=== PATIENT | female | born 1950 ===

== ENCOUNTER 2024-05-24 15:38 | Emergency (ER) | payer MEDICARE, SELFPAY ==
[2024-05-24 15:42] VITALS: BP 174/86; PULSE 84; RESP 18; TEMP 36.8; O2SAT 94
--- NOTE | 2024-05-24 15:46 | CTR_ITS ---
PROCEDURE INFORMATION: Exam: CT Head Without Contrast Exam date and time: 05/24/2024 4:21 PM Age: 74 years old Clinical indication: Injury or trauma; Fall; Blunt trauma (contusions or hematomas); Consciousness not specified TECHNIQUE: Imaging protocol: Computed tomography of the head without contrast. Radiation optimization: All CT scans at this facility use at least one of these dose optimization techniques: automated exposure control; mA and/or kV adjustment per patient size (includes targeted exams where dose is matched to clinical indication); or iterative reconstruction. COMPARISON: CT cervical spin wo con* [id number] 05/24/2024 4:21 PM RADIATION DOSE METRICS: Total DLP (mGy-cm): 1080.8 FINDINGS: Brain: Diffuse cerebral atrophy and white matter microangiopathic chronic ischemia in both hemispheres. No CT evidence of acute infarct, hemorrhage, mass or mass effect. Cerebral ventricles: No ventriculomegaly. Paranasal sinuses: Visualized sinuses are unremarkable. No fluid levels. Mastoid air cells: Visualized mastoid air cells are well aerated. Bones: Moderate chronic degenerative changes of both TMJs. No acute osseous lesions. Soft tissues: Unremarkable. CT/CT head wo con* [id number] IMPRESSION: 1. Senescent brain changes but no CT evidence of acute brain injury. 2. 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
--- NOTE | 2024-05-24 15:46 | CTR_ITS ---
PROCEDURE INFORMATION: Exam: CT Chest With Contrast; Diagnostic Exam date and time: 05/24/2024 4:32 PM Age: 74 years old Clinical indication: Injury or trauma; Fall; Generalized; Blunt trauma (contusions or hematomas) TECHNIQUE: Imaging protocol: Diagnostic computed tomography of the chest with contrast. Radiation optimization: All CT scans at this facility use at least one of these dose optimization techniques: automated exposure control; mA and/or kV adjustment per patient size (includes targeted exams where dose is matched to clinical indication); or iterative reconstruction. Contrast material: OMNIPAQUE 350; Contrast volume: 100 ml; Contrast route: INTRAVENOUS (IV); COMPARISON: CT cervical spin wo con* [id number] 05/24/2024 4:21 PM RADIATION DOSE METRICS: Total DLP (mGy-cm): 671.54 FINDINGS: Lungs: There is mild bilateral apical subpleural scarring. There is no consolidation. There is a calcified granuloma in the left upper lobe. There is subsegmental atelectasis in the right lung base. Pleural spaces: No pneumothorax. Small simple dependent right pleural effusion. Heart: Heart size is normal. There is no pericardial effusion. Mediastinal space: There is no mediastinal hematoma. Lymph nodes: There is no mediastinal or hilar lymphadenopathy. Vasculature: There is moderate aortic atherosclerotic disease. Central pulmonary arteries are unremarkable. Bones/joints: There are acute nondisplaced fractures of the posteromedial and posterolateral right 7th through 11th ribs. There is a nondisplaced medial right 12th rib fracture. The visible portions of the clavicles, scapulae, and proximal humeri are intact. No acute rib fractures on the left. There is a healed fracture of the distal sternal body. No acute sternal fracture. No acute spinal fracture. Soft tissues: The extrathoracic soft tissues are unremarkable. PROCEDURE INFORMATION: Exam: CT Abdomen And Pelvis With Contrast Exam date and time: 05/24/2024 4:32 PM Age: 74 years old Clinical indication: Injury or trauma; Fall; Generalized; Blunt trauma (contusions or hematomas) TECHNIQUE: Imaging protocol: Computed tomography of the abdomen and pelvis with contrast. Radiation optimization: All CT scans at this facility use at least one of these dose optimization techniques: automated exposure control; mA and/or kV adjustment per patient size (includes targeted exams where dose is matched to clinical indication); or iterative reconstruction. Contrast material: OMNIPAQUE 350; Contrast volume: 100 ml; Contrast route: INTRAVENOUS (IV); COMPARISON: No relevant prior studies available. RADIATION DOSE METRICS: Total DLP (mGy-cm): 671.54 FINDINGS: Liver: The liver is normal. Gallbladder and biliary ducts: The gallbladder is normal. There is no biliary dilation. Pancreas: There are 2 cysts in the pancreatic body measuring 11 and 10 mm on coronal series 11, image 35 and 32. No sign of pancreatitis or pancreatic injury. Spleen: The spleen is unremarkable. Adrenal glands: The adrenal glands are unremarkable. Kidneys and ureters: The kidneys are unremarkable. No hydronephrosis or stones. No ureteral dilation. Stomach and bowel: The stomach is unremarkable. The small bowel is nondilated. The gas distended cecum is positioned in the right upper quadrant. There is mild gas and fluid distension of the ascending and transverse colon. No sign of high-grade colonic obstruction or inflammation. There is moderate distal descending and sigmoid colonic diverticulosis without evidence of diverticulitis. Appendix: The appendix is not visible. Intraperitoneal space: There is no free air or significant intraperitoneal free fluid. Vasculature: There is severe aortic atherosclerotic disease. The portal, splenic and superior mesenteric veins are patent. Lymph nodes: There is no lymphadenopathy in the retroperitoneum, mesentery, pelvis or inguinal regions. Urinary bladder: The urinary bladder is unremarkable. Reproductive: The uterus is absent. There is no adnexal mass or large cyst. Bones/joints: Spinal alignment is normal. Vertebral body height is maintained. There are acute fractures of the right L1 and L2 transverse processes. Right L1 transverse process fracture is minimally displaced. Right L2 transverse process fracture is nondisplaced. The lumbar spine is otherwise intact. The bony pelvis is intact. The right hip prosthesis is intact and well aligned. There is mild degenerative disease at the left hip. No femoral fracture is visible. Soft tissues: The abdominal wall is intact. CT/CT chest abdpel w/*[id number] IMPRESSION: 1. Acute nondisplaced segmental fractures of the posteromedial and posterolateral right 7th through 11th ribs. Isolated acute nondisplaced fracture of the right posterior 12th rib. 2. Small simple dependent right pleural effusion with associated atelectasis. No pneumothorax. IMPRESSION: 1. Acute fractures of the right L1 and L2 transverse processes. 2. No sign of significant intra-abdominal injury. 3. Pancreatic cysts measuring up to 11 mm. Reimaging every 2 years for 10 years is recommended. (Reference: Rikki, 2017) 4. Incidental findings above. REFERENCES: Rikki BURTON, et al. Management of Incidental Pancreatic Cysts: A White Paper of the ACR Incidental Findings Committee. J Am Elvis Radiol. 2017;14(7):911-923.
--- NOTE | 2024-05-24 15:48 | CTR_ITS ---
PROCEDURE INFORMATION: Exam: CT Cervical Spine Without Contrast Exam date and time: 05/24/2024 4:21 PM Age: 74 years old Clinical indication: Injury or trauma; Fall; Blunt trauma TECHNIQUE: Imaging protocol: Computed tomography of the cervical spine without contrast. Radiation optimization: All CT scans at this facility use at least one of these dose optimization techniques: automated exposure control; mA and/or kV adjustment per patient size (includes targeted exams where dose is matched to clinical indication); or iterative reconstruction. COMPARISON: CR XR cervical spine 3V* [id number] 09/20/2018 1:54 PM RADIATION DOSE METRICS: Total DLP (mGy-cm): 1037.3 FINDINGS: Bones: There is a grade 1 anterolisthesis of C3 over C4. No evidence of jumped facets. Moderate to severe chronic degenerative changes at C5-C6 and moderate degenerative changes at C6-C7. No acute fracture identified. Chronic degenerative changes at the temporomandibular joints bilaterally. Chronic degenerative facet hypertrophy. Lungs: Biapical pulmonary scar and subpleural biapical pulmonary blebs. Thyroid: Low-density lesions in each lobe of the thyroid measuring up to 1.2 cm on the right. Consider nonemergent ultrasound thyroid to further evaluate. Soft tissues: Unremarkable. CT/CT cervical spin wo con* [id number] IMPRESSION: 1. Chronic degenerative changes of the cervical spine without fracture. 2. Biapical pulmonary scar and subpleural pulmonary blebs. 3. Nonspecific low-density lesions in both lobes of the thyroid. Consider nonemergent thyroid ultrasound to further evaluate. COMMENTS: Consistent with the [employer]'s Incidental Findings Committee white paper (J Am Elvis Radiol 2015): In patients aged 35 years and older with an incidental thyroid nodule equal to or greater than 1.[address], MRI or extrathyroidal US, further evaluation with dedicated thyroid US is recommended for patients with normal life expectancy and without comorbidities. For smaller nodules without suspicious features, no further evaluation or follow up is recommended.
--- NOTE | 2024-05-24 16:00 | ED_ITS ---
HPI - Back Pain/Injury 2 General: Chief Complaint: Back Pain/Injury Stated Complaint: fall, hit head, back pain Time Seen by Provider: 05/24/24 15:43 Source: patient and EMS Mode of arrival: EMS Limitations: no limitations History of Present Illness: 74-year-old female is here after a fall. States she did fell in the shower states she did hit her head along with her right ribs and flank states she has a headache denies loss conscious has pain in her ribs and flank. She rates the pain a 4 out of 10 she states she also had a fall earlier in the week where she tripped on a dog toy no major injuries then. Associated symptoms: Deny abdominal pain, chills, fever(s), nausea or vomiting Related Data Home Medications Medication Instructions Recorded Confirmed atorvastatin 10 mg tablet 10 mg PO DAILY 05/24/24 05/24/24 lisinopril 5 mg tablet 5 mg PO DAILY 05/24/24 05/24/24 lorazepam 1 mg tablet 1 mg PO DAILY 05/24/24 05/24/24 paroxetine HCl 10 mg tablet 10 mg PO DAILY 05/24/24 05/24/24 tramadol 50 mg tablet 50 mg PO DAILY 05/24/24 05/24/24 Allergies Allergy/AdvReac Type Severity Reaction Status Date / Time No Known Allergies Allergy Verified 05/24/24 15:48 Review of Systems 2 Const: Denies: fever(s), chills, body aches or change in appetite Eyes: Denies: blurry vision or eye discomfort Card: Reports: chest pain Resp: Denies: dyspnea GI: Denies: abdominal pain, nausea, vomiting or diarrhea Musc: Reports: back pain; Denies: neck pain Skin/Breast: Denies: rash Neuro: Reports: headache(s) Physical Exam 2 Const: COMMON NORMALS: no acute distress, patient oriented x3 and healthy appearing HENMT: COMMON NORMALS: normocephalic HEAD & SCALP: normocephalic OTHER: Posterior scalp tenderness Eye: COMMON NORMALS: Equal, round and reactive pupils present and EOMs intact bilaterally PUPIL: Yes Equal, round and reactive pupils present Neck/C-Spine: COMMON NORMALS: full ROM and supple Chest: COMMONS NORMALS: normal inspection of the chest OTHER: Right chest wall tenderness Resp: COMMON NORMALS: normal respiratory effort, No retractions, No use of accessory muscles and clear to auscultation bilaterally AUSCULTATION: clear to auscultation bilaterally Cardio: COMMON NORMALS: regular rate, regular rhythm and No murmurs present (Cardio) RATE: regular rate RHYTHM: regular rhythm GI: COMMON NORMALS: Normal to inspection, nondistended, normoactive bowel sounds present, Soft to palpation, non-tender and no masses PALPATION: Yes Soft to palpation : OTHER: Tenderness noted over right flank Extremity: COMMON NORMALS: normal to inspection and full ROM Neuro: COMMON NORMALS: patient oriented x3, moves all extremities and no focal motor deficits Psych: COMMON NORMALS: mental status grossly normal, Normal thought process present and cooperative THOUGHT PROCESS: Normal thought process present Skin: COMMON NORMALS: no rashes or lesions noted and no wounds GENERAL SKIN EXAM: no rashes or lesions noted Course 2 Vital Signs: Vital signs: Vital Signs Temperature 98.2 F 05/24/24 15:42 Pulse Rate 82 05/24/24 17:20 Respiratory Rate 16 05/24/24 17:19 Blood Pressure 136/76 05/24/24 17:20 Pulse Oximetry 94 05/24/24 17:20 Oxygen Delivery Me thod Room Air 05/24/24 17:20 MDM - Back Pain/Injury Medical Decision Making Patient presents after a fall CT shows multiple segmental rib fractures consistent with flail chest no pneumo no contusions at this time patient's having quite a bit of pain. Did review CT with Dr. Stark surgeon on-call who feels that patient needs trauma and thoracic surgery to monitor the rib fracture did speak to [facility] will transfer their ER to ER. For higher level of care for trauma services and thoracic surgery services Medical Records I reviewed the patient's medical records. Labs I reviewed the patient's lab results. 05/24/24 17:18 05/24/24 17:18 Radiology Impressions Chest/Abdomen/Pelvis CT 05/24/24 15:46 IMPRESSION: 1. Acute nondisplaced segmental fractures of the posteromedial and posterolateral right 7th through 11th ribs. Isolated acute nondisplaced fracture of the right posterior 12th rib. 2. Small simple dependent right pleural effusion with associated atelectasis. No pneumothorax. IMPRESSION: 1. Acute fractures of the right L1 and L2 transverse processes. 2. No sign of significant intra-abdominal injury. 3. Pancreatic cysts measuring up to 11 mm. Reimaging every 2 years for 10 years is recommended. (Reference: Rikki 2017) 4. Incidental findings above. REFERENCES: Rikki BURTON, et al. Management of Incidental Pancreatic Cysts: A White Paper of the ACR Incidental Findings Committee. J Am Elvis Radiol. 2017;14(7):911-923. Head CT 05/24/24 15:46 IMPRESSION: 1. Senescent brain changes but no CT evidence of acute brain injury. 2. 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 Cervical Spine CT 05/24/24 15:48 IMPRESSION: 1. Chronic degenerative changes of the cervical spine without fracture. 2. Biapical pulmonary scar and subpleural pulmonary blebs. 3. Nonspecific low-density lesions in both lobes of the thyroid. Consider nonemergent thyroid ultrasound to further evaluate. COMMENTS: Consistent with the [employer]'s Incidental Findings Committee white paper (J Am Elvis Radiol 2015): In patients aged 35 years and older with an incidental thyroid nodule equal to or greater than 1.[address], MRI or extrathyroidal US, further evaluation with dedicated thyroid US is recommended for patients with normal life expectancy and without comorbidities. For smaller nodules without suspicious features, no further evaluation or follow up is recommended. Laboratory Results WBC 12.95 10^3/uL (3.29-11.43) H 05/24/24 17:18 RBC 4.02 10^6/uL (3.85-5.65) 05/24/24 17:18 Hgb 12.70 g/dL (11.27-16.99) 05/24/24 17:18 Hct 38.1 % (36-47) 05/24/24 17:18 MCV 94.8 fl (85-98) 05/24/24 17:18 MCH 31.6 pg (27-33) 05/24/24 17:18 MCHC 33.3 g/dL (30-55) 05/24/24 17:18 RDW 13.4 % (12.1-15.1) 05/24/24 17:18 Plt Count 237 10^3/cmm (157-399) 05/24/24 17:18 MPV 9.8 fL (7.4-10.4) 05/24/24 17:18 Neut % (Auto) 85.4 % 05/24/24 17:18 Lymph % (Auto) 5.6 % 05/24/24 17:18 Bay % (Auto) 6.6 % 05/24/24 17:18 Eos % (Auto) 1.7 % 05/24/24 17:18 Baso % (Auto) 0.4 % 05/24/24 17:18 Neut # (Auto) 11.06 10^3/uL (1.8-7.7) H 05/24/24 17:18 Lymph # (Auto) 0.7 10^3/uL (0.8-4.8) L 05/24/24 17:18 Bay # (Auto) 0.9 10^3/uL (0.2-0.9) 05/24/24 17:18 Eos # (Auto) 0.2 10^3/uL (0.0-0.8) 05/24/24 17:18 Baso # (Auto) 0.1 10^3/uL (0.0-0.1) 05/24/24 17:18 Nucleated RBC % (auto) 0 % 05/24/24 17:18 Nucleated RBCs # 0.0 /100WBC 05/24/24 17:18 Sodium 132 mmol/L (136-145) L 05/24/24 17:18 Potassium 4.5 mmol/L (3.5-5.1) 05/24/24 17:18 Chloride 96 mmol/L (98-107) L 05/24/24 17:18 Carbon Dioxide 28 mmol/L (22-29) 05/24/24 17:18 Anion Gap 12.5 (5-19) 05/24/24 17:18 BUN 10 mg/dL (8-23) 05/24/24 17:18 Creatinine 0.5 mg/dL (0.5-0.9) 05/24/24 17:18 GFR Calculation Not Reportable 05/24/24 17:18 Glucose 91 mg/dL (65-115) 05/24/24 17:18 Calculated Osmolality 273 mOsm/kg (285-295) L 05/24/24 17:18 Calcium 8.8 mg/dL (8.5-10.5) 05/24/24 17:18 Total Bilirubin 0.2 mg/dL (0.15-1.2) 05/24/24 17:18 AST 25 U/L (0-32) 05/24/24 17:18 ALT 23 U/L (0-33) 05/24/24 17:18 Alkaline Phosphatase 80 U/L (35-105) 05/24/24 17:18 Total Protein 6.3 g/dL (6.6-8.7) L 05/24/24 17:18 Albumin 3.6 g/dL (3.5-5.2) 05/24/24 17:18 Globulin 2.7 g/dL (1.3-4.6) 05/24/24 17:18 All radiology interpretation(s) finalized by discharge Discharge Plan Discharge Patient Disposition: Xfer [facility] Clinical Impression: Fall, Fracture, ribs Condition: Stable Prescriptions: No Action paroxetine HCl 10 mg tablet 10 mg PO DAILY atorvastatin 10 mg tablet 10 mg PO DAILY tramadol 50 mg tablet 50 mg PO DAILY lisinopril 5 mg tablet 5 mg PO DAILY lorazepam 1 mg tablet 1 mg PO DAILY Referrals: Brennon Banerjee DO [Primary Care Provider] - Coding Level of Care Code ED [employer] for Celsa Patterson
[2024-05-24] MEDS: iohexol 350 mg/mL 500 mL Btl (per mL) IV (16:41)
[2024-05-24 17:19] VITALS: RESP 16; O2SAT 92
[2024-05-24] MEDS: morphine 4 mg/mL SDV 1 mL IVP ×2 (17:19→20:10)
[2024-05-24] MEDS: ondansetron 2 mg/ML SDV 2 mL 4 MG IVP ×2 (17:19→20:10)
[2024-05-24 17:20] VITALS: BP 136/76; PULSE 82; O2SAT 94
[2024-05-24 17:24] LABS: Basophils # 0.1 10^3/uL (0.0-0.1); Basophils % 0.4 %; Eosinophils # 0.2 10^3/uL (0.0-0.8); Eosinophils % 1.7 %; Hematocrit 38.1 % (36-47); Lymphocytes # 0.7 10^3/uL (0.8-4.8); Lymphocytes % 5.6 %; Mean Corpuscular HGB Conc 33.3 g/dL (30-55); Mean Corpuscular Hemoglobin 31.6 pg (27-33); Mean Corpuscular Volume 94.8 fl (85-98); Mean Platelet Volume 9.8 fL (7.4-10.4); Monocytes # 0.9 10^3/uL (0.2-0.9); Monocytes % 6.6 %; Neutrophils # 11.06 10^3/uL (1.8-7.7); Neutrophils % 85.4 %; Nucleated Red Blood Cells % 0 %; Platelet Count 237 10^3/cmm (157-399); Red Blood Count 4.02 10^6/uL (3.85-5.65); Red Cell Distribution Width 13.4 % (12.1-15.1); White Blood Count 12.95 10^3/uL (3.29-11.43)
[2024-05-24 17:43] LABS: Alanine Aminotransferase 23 U/L (0-33); Albumin Level 3.6 g/dL (3.5-5.2); Alkaline Phosphatase 80 U/L (35-105); Blood Urea Nitrogen 10 mg/dL (8-23); Calcium 8.8 mg/dL (8.5-10.5); Carbon Dioxide 28 mmol/L (22-29); Chloride 96 mmol/L (98-107); Globulin 2.7 g/dL (1.3-4.6); Glucose 91 mg/dL (65-115); Osmolality Calculated 273 mOsm/kg (285-295); Sodium 132 mmol/L (136-145); Total Bilirubin 0.2 mg/dL (0.15-1.2); Total Protein 6.3 g/dL (6.6-8.7)
[2024-05-24 17:45] LABS: Anion Gap 12.5 (5-19); Aspartate Amino Transferase 25 U/L (0-32); Potassium 4.5 mmol/L (3.5-5.1)
--- NOTE | 2024-05-24 18:35 | PC.NURSE ---
report called to Lanie Boudreaux at [facility] in [place], [place]. no further questions at end of report.
[2024-05-24 20:17] VITALS: BP 135/74; PULSE 81; RESP 16; O2SAT 97
[2024-05-24 20:40] VITALS: BP 135/74; PULSE 81; RESP 16; O2SAT 97
== END 2024-05-24 20:35 ==
PROVIDERS: Emergency Provider Emergency Medicine; PCP Family Medicine
DX: S22.41XA Multiple fractures of ribs, right side, initial encounter for closed fracture (principal); W18.2XXA Fall in (into) shower or empty bathtub, initial encounter
CPT/HCPCS: 70450; 71260; 72125; 74177; 80053; 85025; 96374; 96375; 96376; 99285; J2270; J2405

== ENCOUNTER 2025-01-22 15:33 | Emergency (ER) | payer MEDICARE, SELFPAY ==
[2025-01-22] VITALS (11 sets, daily range): BP systolic 124–150; BP diastolic 63–87; PULSE 76–91; RESP 14–18; TEMP 36.7; O2SAT 92–99; BMI 23.4
--- NOTE | 2025-01-22 15:38 | CTR_ITS ---
PROCEDURE INFORMATION: Exam: CT Head Without Contrast Exam date and time: 01/22/2025 3:46 PM Age: 74 years old Clinical indication: Fall, without loss of consciousness. TECHNIQUE: Imaging protocol: Computed tomography of the head without contrast. Total images: 291 submitted. Radiation optimization: All CT scans at this facility use at least one of these dose optimization techniques: automated exposure control; mA and/or kV adjustment per patient size (includes targeted exams where dose is matched to clinical indication); or iterative reconstruction. COMPARISON: CT head wo con* [id number] 05/24/2024 4:21 PM RADIATION DOSE METRICS: Total DLP (mGy-cm): 1251.5 FINDINGS: Brain: No midline shift. Cisterns are noneffaced. < 5 mm, oval, low attenuation lesion with similar density as CSF at left external capsule is unchanged, suggesting chronic, lacunar infarct. Mild, ill-defined, low attenuation areas at bilateral frontal subcortical white matter persist. No abnormal high attenuation lesions within brain parenchyma. No intracranial hemorrhage. No definite evidence of acute infarcts. However, diffusion MRI is more sensitive. No extra-axial fluid collections. Cerebral ventricles: Ventricles along with cerebral sulci are mildly enlarged, reflecting volume loss. Callosal angle at level of posterior commissure measures 120 degrees. Paranasal sinuses: Visualized left maxillary sinus remains completely opacified. Mastoid air cells: Visualized mastoid air cells are well aerated. Orbital cavities: There are bilateral intraocular lens implants. Mild calcification at left medial globe near insertion of medial rectus tendon likely reflects senescent changes. Bones: No acute fractures. Mild osteoarthritis of bilateral atlanto-occipital joints, as evidenced by small osteophytes, is present. There are mild degenerative changes at articulation of anterior arch of C1 and dens of C2. There is moderate osteoarthritis of bilateral temporomandibular joints. Soft tissues: Grossly normal. Vasculature: Right cavernous and ophthalmic carotid artery are moderately calcified. Left cavernous and ophthalmic carotid artery and V4 segment of right vertebral artery are mildly calcified. CT/CT head wo con* [id number] IMPRESSION: 1. Mild cerebral volume loss. Unchanged, < 6 mm, chronic, lacunar infarct at left external capsule. Persistent, mild hypodensities at bilateral frontal subcortical white matter, suggesting microvascular ischemic changes. 2. Persistent, complete opacification of visualized left maxillary sinus. At clinical discretion, sinus CT may be helpful further evaluation. 3. Atherosclerosis.
--- NOTE | 2025-01-22 15:38 | CTR_ITS ---
PROCEDURE INFORMATION: Exam: CT Cervical Spine Without Contrast Exam date and time: 01/22/2025 3:46 PM Age: 74 years old Clinical indication: Fall, without loss of consciousness. Neck pain. TECHNIQUE: Imaging protocol: Computed tomography of the cervical spine without contrast. Total images: 486 submitted. Radiation optimization: All CT scans at this facility use at least one of these dose optimization techniques: automated exposure control; mA and/or kV adjustment per patient size (includes targeted exams where dose is matched to clinical indication); or iterative reconstruction. COMPARISON: 1. CT cervical spin wo con* [id number] 05/24/2024 4:21 PM 2. CR XR cervical spine 3V* [id number] 09/20/2018 1:54 PM RADIATION DOSE METRICS: Total DLP (mGy-cm): 154.8 FINDINGS: Bones: There is mild right lower cervical curvature. No acute fractures to T1/2. Mild depression of superior endplate of T1 suggests chronic, compression fracture. < 2 mm, grade I (??? 25%) anterolisthesis of C2 on 3 probably is degenerative in nature. < 3 mm, oval, well-defined, gas-containing lesion at superior endplate of C6 likely reflects incidental pneumatocyst. Mild osteoarthritis of bilateral atlanto-occipital joints, as evidenced by small osteophytes, is present. There are mild degenerative changes at articulation of anterior arch of C1 and dens of C2. At C2/3, there is mild left facet hypertrophy, without significant canal or neural foraminal narrowing. At C3/4, there are mild posterior disc protrusion/osteophyte complex and mild right and moderate-severe left facet hypertrophy, with mild canal and mild-moderate left neural foraminal narrowing. At C4/5, there are mild posterior disc protrusion/osteophyte complex and mild right facet hypertrophy, with mild canal, but no significant neural foraminal narrowing. At C5/6, there is moderate posterior disc protrusion/osteophyte complex, with moderate canal and moderate right and mild-moderate left neural foraminal narrowing. At C6/7, there are mild posterior disc protrusion/osteophyte complex and mild right facet hypertrophy, with mild canal and mild right neural foraminal narrowing. At C7/T1, there are mild vertebral osteophytes and mild-moderate bilateral facet hypertrophy, without significant canal or neural foraminal narrowing. At T1/2, there are mild vertebral osteophytes, without significant canal or neural foraminal narrowing. There is moderate osteoarthritis of bilateral temporomandibular joints, as evidenced by joint space narrowing, subchondral cysts, and osteophytes. Paranasal sinuses: Visualized left maxillary sinus is completely opacified. Lungs: Moderate, ill-defined, lucent areas surrounding centrilobular bronchovascular bundles at visualized bilateral upper lobes suggest centrilobular emphysema. Several, < 1.7 cm blebs are scattered at bilateral apices. Moderate, irregular opacities, with associated calcifications at bilateral apices suggest scars. Thyroid: A few, < 1 cm, heterogeneous, low attenuation nodules are scattered within bilateral lobes of thyroid. Vasculature: Aorta is moderately calcified on associate technician images. Left common carotid artery and origins of left external and right internal carotid arteries are moderately calcified. Left > right subclavian arteries and origins of right external and left internal carotid arteries are mildly calcified. Right cavernous and ophthalmic carotid artery is moderately calcified. Left cavernous and ophthalmic carotid artery and V4 segment of right vertebral artery are mildly calcified. V4 segment of left vertebral artery is minimally calcified. Soft tissues: Grossly unremarkable. CT/CT cervical spin wo con* [id number] IMPRESSION: 1. No acute fractures to T1/2. Mild, chronic, compression fracture of superior endplate of T1. < 2 mm, grade I (??? 25%) anterolisthesis of C2 on 3, probably degenerative in nature. Degenerative changes at several levels of cervical and upper thoracic spine as described above. 2. Complete opacification of visualized left maxillary sinus. At clinical discretion, sinus CT may be helpful for further evaluation. 3. Centrilobular emphysema. 4. A few, < 1 cm nodules scattered within bilateral lobes of thyroid. No follow-up is recommended. 5. Atherosclerosis. COMMENTS: Consistent with the [place] [employer]'s Incidental Findings Committee white paper (J Am Elvis Radiol 2015): In patients aged 35 years and older with an incidental thyroid nodule equal to or greater than 1.[address], MRI or extrathyroidal US, further evaluation with dedicated thyroid US is recommended for patients with normal life expectancy and without comorbidities. For smaller nodules without suspicious features, no further evaluation or follow up is recommended.
--- NOTE | 2025-01-22 15:38 | XRR_ITS ---
PROCEDURE INFORMATION: Exam: XR Left Wrist Exam date and time: 01/22/2025 3:50 PM Age: 74 years old Clinical indication: Injury or trauma; Other: Not specified; Blunt trauma (contusions or hematomas); Wrist; Left; Additional info: Trauma, deformity TECHNIQUE: Imaging protocol: Radiologic exam of the left wrist. Views: 3 or more views. COMPARISON: No relevant prior studies available. FINDINGS: Bones/joints: Acute transverse fracture involves the distal left radial metaphysis. The fracture has an intra-articular component. The distal fragment is displaced dorsally by 6 mm, angulated dorsally and moderately impacted. No other fractures. Severe degenerative changes are noted at the 1st carpometacarpal articulation. Soft tissues: Moderate soft tissue swelling overlies the wrist, specifically over the distal ulna. XR/XR wrist LT min 3V* [id number] IMPRESSION: Distal left radius fracture which is impacted, angulated and dorsally displaced.
--- NOTE | 2025-01-22 15:46 | W.ED.EXTPRO ---
HPI - Extremity Problem General: Chief complaint: Extremity Injury, Upper Stated complaint: Fall Time Seen by Provider: 01/22/25 15:35 History of Present Illness: Is a 74-year-old female who presents the emergency room by ambulance with left wrist pain and a head injury after a fall. She was walking downstairs and lost her balance and fell. She has deformity to her left wrist. She had the back of her head. No loss of consciousness. No altered mental status. No focal motor deficits. No neck pain. She is not on any anticoagulation. No other injuries. No chest pain. No abdominal pain. No hip pain. No leg pain. Related Data Home Medications ?Medication ?Instructions ?Recorded ?Confirmed atorvastatin 10 mg tablet 10 mg PO DAILY 05/24/24 01/22/25 lisinopril 5 mg tablet 5 mg PO DAILY 05/24/24 01/22/25 paroxetine HCl 10 mg tablet 10 mg PO DAILY 05/24/24 01/22/25 acetaminophen 500 mg tablet 500 mg PO Q6H PRN Fever Or Pain 01/22/25 01/22/25 (Tylenol Extra Strength) calcium 600 mg (as 1 tab PO BID 01/22/25 01/22/25 carbonate)-vitamin D3 5 mcg (200 unit) tablet coenzyme Q10 100 mg capsule 100 mg PO DAILY 01/22/25 01/22/25 (CoQ-10) multivitamin 1 tab PO DAILY 01/22/25 01/22/25 Previous Rx's ?Medication ?Instructions ?Recorded hydrocodone 5 mg-acetaminophen 325 1 tab PO Q6H PRN pain #30 tabs 01/22/25 mg tablet ondansetron 4 mg disintegrating 4 mg PO Q8H PRN nausea and 01/22/25 tablet vomiting #10 tabs polyethylene glycol 3350 17 17 g PO DAILY #510 grams 01/22/25 gram/dose oral powder (Miralax) Allergies Allergy/AdvReac Type Severity Reaction Status Date / Time No Known Allergies Allergy Verified 05/24/24 15:48 Review of Systems Narrative: Constitutional symptoms: Negative except as documented in HPI. Skin symptoms: Negative except as documented in HPI. Eye symptoms: Negative except as documented in HPI. ENMT symptoms: Negative except as documented in HPI. Respiratory symptoms: Negative except as documented in HPI. Cardiovascular symptoms: Negative except as documented in HPI. Gastrointestinal symptoms: Negative except as documented in HPI. Genitourinary symptoms: Negative except as documented in HPI. Musculoskeletal symptoms: Negative except as documented in HPI. Neurologic symptoms: Negative except as documented in HPI. Psychiatric symptoms: Negative except as documented in HPI. Endocrine symptoms: Negative except as documented in HPI. Physical Exam Narrative: EXAM NARRATIVE: General: Alert, no acute distress. Skin: Warm, dry. Head: Normocephalic, atraumatic. Neck: Supple, trachea midline. Eye: Extraocular movements are intact. Ears, nose, mouth and throat: mucosa moist. Cardiovascular: Regular, Normal peripheral perfusion. Respiratory: Lungs are clear to auscultation, respirations are non-labored, breath sounds are equal, Symmetrical chest wall expansion. Gastrointestinal: Soft, Nontender, Non distended Musculoskeletal: Apparent deformity to the left wrist. She has a field splint on Neurological: Alert and oriented, No focal neurological deficit observed. Psychiatric: Cooperative, appropriate mood & affect. Course Vital Signs: Vital signs: Vital Signs Temperature 98.0 F 01/22/25 15:36 Pulse Rate 91 01/22/25 18:04 Respiratory Rate 18 01/22/25 18:04 Blood Pressure 124/83 01/22/25 18:04 Pulse Oximetry 92 01/22/25 18:04 Oxygen Delivery Me thod Room Air 01/22/25 18:04 Oxygen Flow Rate 2.5 01/22/25 17:22 MDM - Extremity (Nontraumatic) Medical Decision Making Medical decision making: Differential diagnosis including but not limited to and based on the above HPI, review of systems and physical exam: patient with fall and head injury. Subdural hematoma, subarachnoid hemorrhage, concussion, skull fracture. Orders placed to evaluate differential diagnosis based on the above differential, HPI and physical exam CT scan of the head was ordered. CT head: Chronic senescent changes, volume loss. No acute intracranial process. no intracranial hemorrhage, no evidence of infarct. no evidence of acute fracture.This was reviewed and interpreted by myself the ER physician. CT of the cervical spine: No fracture. Degenerative changes. Old compression fracture. Good alignment. No step-offs. This was reviewed and interpreted by myself the emergency room physician. I also reviewed the radiologist report. X-ray of the wrist: Comminuted angulated distal radius fracture. This was reviewed and interpreted by myself the emergency room physician. I also reviewed the radiology report. I reviewed the patient's medical record. Consultation: I spoke with Dr. Kearney who is on-call for orthopedics he recommends sedation with reduction and splinting. He will follow-up in clinic Procedural sedation Time: 1644 Confirmed: Patient and procedure correct. Consent: Consent: The risks and benefits of monitored anesthesia care, including the risk of aspiration, nausea/vomiting and the risks of not performing the procedure, including severe pain and inability to complete the procedure, were all discussed with the patient. The alternatives of performing the procedure, including local anesthesia and IV analgesia, also discussed. The patient has a ride home available Indication: Closed reduction. Monitoring: Cardiac, blood pressure, continuous pulse oximetry. Preparation: Suction, IV access, Constant attendance, Supplemental oxygen. See ER physician note for summary of the patient's present medication list and for drug allergy and intolerance history Physical exam: Airway: appears normal, Heart: regular rate and rhythm, Breath sounds: equal. Pre sedation vital signs: See nurse's notes. Procedural sedation: 80 mg IV propofol. . Post sedation vital signs: See nurse's notes. Patient tolerated: Well. Complications: The patient was recovered from the sedation without complication or incident. Post sedation condition: Patient returned to pre-sedation level of awareness. The monitoring was discontinued at this time. Performed by: Self. Notes: Pt attended by independent trained observer time of sedation was 15 minutes. . Fracuture / Dislocation procedure Time: 1644 Confirmed correct: Patient, procedure, sight. Consent: Patient Indication: Fracture/dislocation Location: Left wrist Pre procedure exam: Sensory intact, Procedural sedation: (repeat): IV propofol 100 mg Monitoring: Cardiac, blood pressure and pulse oximiter Technique: traction - counter traction. Post-procedure exam: _ alignment improved, circulatory neuro intact. Immobilization: Splint was placed by myself and nursing. Patient was neurovascularly intact afterwards. Patient tolerated: Well Complications: None Performed by (rpt): Self Notes: Procedure time: X-ray of the wrist/postreduction films: Possibly slight increase in angulation but overall not a lot of change. I reviewed this with orthopedics. He will see her in clinic and likely she will need surgery. Films were interpreted by myself the emergency room provider and pending final radiology review. Assessment and plan: Wrist fracture Head injury Fall ? Dilaudid in the emergency room. Reduction and splinting done. Follow-up with Ortho. - Discharged home - Discussed plan with patient. Answered any questions. - Evaluation and treatment of this problem were appropriate in the emergency setting. Lab Data Radiology Impressions Cervical Spine CT 01/22/25 15:38 IMPRESSION: 1. No acute fractures to T1/2. Mild, chronic, compression fracture of superior endplate of T1. < 2 mm, grade I (??? 25%) anterolisthesis of C2 on 3, probably degenerative in nature. Degenerative changes at several levels of cervical and upper thoracic spine as described above. 2. Complete opacification of visualized left maxillary sinus. At clinical discretion, sinus CT may be helpful for further evaluation. 3. Centrilobular emphysema. 4. A few, < 1 cm nodules scattered within bilateral lobes of thyroid. No follow-up is recommended. 5. Atherosclerosis. COMMENTS: Consistent with the [employer]'s Incidental Findings Committee white paper (J Am Elvis Radiol 2015): In patients aged 35 years and older with an incidental thyroid nodule equal to or greater than 1.[address], MRI or extrathyroidal US, further evaluation with dedicated thyroid US is recommended for patients with normal life expectancy and without comorbidities. For smaller nodules without suspicious features, no further evaluation or follow up is recommended. Head CT 01/22/25 15:38 IMPRESSION: 1. Mild cerebral volume loss. Unchanged, < 6 mm, chronic, lacunar infarct at left external capsule. Persistent, mild hypodensities at bilateral frontal subcortical white matter, suggesting microvascular ischemic changes. 2. Persistent, complete opacification of visualized left maxillary sinus. At clinical discretion, sinus CT may be helpful further evaluation. 3. Atherosclerosis. ADDENDUM: 01/22/25 7288 TYPOGRAPHICAL CORRECTION AND ADDENDUM: Total images: *293* submitted. Aorta is moderately calcified on provisioning specialist images. Degenerative disc and facet disease of several levels of cervical spine and mild osteoarthritis of bilateral acromioclavicular joints are evident on provisioning specialist images. Wrist X-Ray 01/22/25 16:57 IMPRESSION: Persistent impaction and dorsal displacement involving the comminuted distal left radius fracture. All radiology interpretation(s) finalized by discharge Discharge Plan Discharge Patient Disposition: Home Clinical Impression: Wrist fracture, left, Head injury, Fall Condition: Stable Prescriptions: New hydrocodone-acetaminophen 5-325 mg tablet 1 tab PO Q6H PRN (Reason: pain) Qty: 30 0RF polyethylene glycol 3350 [Miralax] 17 gram/dose powder 17 g PO DAILY Qty: 510 0RF Rx Instructions: Take 1 scoop daily while taking pain medications. ondansetron 4 mg tablet,disintegrating 4 mg PO Q8H PRN (Reason: nausea and vomiting) Qty: 10 0RF No Action paroxetine HCl 10 mg tablet 10 mg PO DAILY atorvastatin 10 mg tablet 10 mg PO DAILY lisinopril 5 mg tablet 5 mg PO DAILY multivitamin Tablet 1 tab PO DAILY calcium carbonate-vitamin D3 [Calcium + D] 600 mg-5 mcg (200 unit) Tablet 1 tab PO BID acetaminophen [Tylenol Extra Strength] 500 mg Tablet 500 mg PO Q6H PRN (Reason: Fever Or Pain) coenzyme Q10 [CoQ-10] 100 mg Capsule 100 mg PO DAILY Discharge Orders: Discharge ED (Routine); Ordered 01/22/25 Ordered By: Amaris Vogel Referrals: Cristofer Kearney DO [Physician, Orthopedics] - 4-7 days Referral Note: Please call for a follow-up appointment. Brennon Banerjee DO [Primary Care Provider, Family Practice] Discharge Activity: Limit activity as instructed Patient Instructions: Wrist Fracture in Adults (ED), Splint Care (ED), Opioid Safety, Pain Management, Patient Portal & Jerrod Instructions Activity Restrictions/Additional Instructions: Thank you for choosing [facility] for your healthcare needs today. You have been screened and evaluated and felt safe for discharge. Health conditions do change or evolve sometimes and as such it is important that you follow up with your Primary Doctor to be re checked, 3-5 days is a general good time frame for follow up. You are always welcome to return to the ED for re assessment if your symptoms are worsening or you have new concerns Print Language: Azeri Coding Level of Care Code ED [employer] for Celsa Patterson
--- OUTSIDE RECORDS SUMMARY | 2025-01-22 15:46 | XMS_ITS | Data Portability ---
Author Organization [facility] Dawkins [facility] Address [address] [address] Assessment No assessment recorded. Plan of Treatment Reminders Order Date Submit Date Provider Last Modified By Organization Details Last Modified Time Details Appointments None recorded. Lab None recorded. Referral None recorded. Procedures None recorded. Surgeries None recorded. Imaging None recorded. Medication Orders amoxicillin 875 mg-potassiu m clavulanate 125 mg tablet 2024 025 [facility], [place], [address], 12:45:51 prednisone 20 mg tablet 2024 025 [facility], [address], [place], [address], 12:45:51 doxycycline hyclate 100 mg capsule 2024 025 [facility], [address], [place], [address], 19:00:58 fluticasone propionate 50 mcg/actuati on nasal spray,suspe nsion 2024 025 [facility], [address], [place], [address], 19:00:57 benzonatate 200 mg capsule 2024 025 [facility], [address], [place], [address], 19:00:58 tramadol 50 mg tablet 2023 024 [email or web address] [id number], [address], [address], [place], [address], 12:33:07 Patient TargetsNo targets recorded. Patient InstructionsNo instructions recorded. Reason for Referral None Reported. Problems Name Problem SNOMED Code Status Onset Date Resolution Date Notes Provider Name and Address Organization Details Recorded Time Hypertensive disorder 71374350 [facility] 2024 [facility] 12:[facility]:20 Hypercholestero lemia 02997071 Active 2024 [facility] 12:33:35 Problem Notes None recorded. Procedures Surgical History Date Name Laterality Status Provider Name and Address Organization Details Recorded Time hysterectomy completed [facility] 12:33:[facility] 12:34:[facility] 12:34:11 Imaging Results None recorded. Procedure Notes None recorded. Medical Equipment None Reported. Allergies No known drug allergies Medications Name Sig Start Date Stop Date Status Note LastModified by Organization Details LastModified Time doxycycline hyclate 100 mg capsule Take 1 capsule twice a day by oral route for 7 days. 2024 active Not Available Not Available Not Avai lable paroxetine 10 mg tablet TAKE 1 TABLET BY MOUTH ONCE DAILY active Not Available Not Available No t Available atorvastati n 10 mg tablet TAKE 1 TABLET BY MOUTH ONCE DAILY active Not Available Not Available No t Available benzonatate 200 mg capsule Take 1 capsule 3 times a day by oral route as needed. 2024 active Not Available Not Available Not Avai lable prednisone 20 mg tablet 2 tabs po qam 2024 active Not Available Not Available Not Avai lable tramadol 50 mg tablet Take 1 tablet twice a day by oral route as needed, for back pain. 10/15 completed Not Available Not Available Not Available lisinopril 10 mg tablet TAKE 1 TABLET BY MOUTH ONCE DAILY 10/15 completed Not Available Not Available Not Available lisinopril 5 mg tablet TAKE 1 TABLET BY MOUTH ONCE DAILY FOR 90 DAYS active Not Available Not Available No t Available lorazepam 1 mg tablet TAKE 1 TABLET BY MOUTH ONCE DAILY AT BEDTIME NEEDED FOR 30 DAYS 10/15 completed Not Available Not Available Not Available fluticasone propionate 50 mcg/actuati on nasal spray,suspe nsion [place] 2 sprays every day by intranasa l route in the morning. 2024 active Not Available Not Available Not Avai lable amoxicillin 875 mg-potassiu m clavulanate 125 mg tablet Take 1 tablet every 12 hours by oral route for 7 days. 2024 active Not Available Not Available Not Avai lable Vitals Date Recorded Body height Body mass index (BMI) Body weight Body temperature Oxygen saturation Oxygen saturation in Arterial blood by Pulse oximetry Heart rate Respiratory rate Systolic And Diastolic Provider Name and Address Organization Details Last Updated DateTime 5 152.4 cm 24.3 kg/m2 47319.5 5 g 98.3 [degF] 99 % 99 % 83 /min 19 /min 118/74 mm[Hg] HECTOR HYMAN [facility] 5 12:09:52 Date Recorded Body height Body mass index (BMI) Body weight Body temperature Oxygen saturation Oxygen saturation in Arterial blood by Pulse oximetry Heart rate Systolic And Diastolic Provider Name and Address Organization Details Last Updated DateTime 5 152.4 cm 24.4 kg/m2 93738.0 5 g 98.1 [degF] 94 % 94 % 93 /min 160/90 mm[Hg] RONY GONZALEZ [facility] 5 12:32:19 Date Recorded Body height Body mass index (BMI) Body weight Oxygen saturation Oxygen saturation in Arterial blood by Pulse oximetry Heart rate Body temperature Systolic And Diastolic Provider Name and Address Organization Details Last Updated DateTime 4 152.4 cm 25.5 kg/m2 94201.8 1 g 92 % 92 % 90 /min 98.1 [degF] 130/84 mm[Hg] Susan Bustillos [facility] 4 11:17:18 Social History None recorded. Functional Status None recorded. Mental Status None recorded. Family History Nothing Reported. Medical History Condition Response Coronary Artery Disease N Other N Gout N Kidney Stones N Blood Diseases N Hyperthyroidism N Breast Cancer N Blood Transfusion N Hypothyroidism N Depression N COPD N Lung Disease N Defects or Inherited Disease N Developmental or Behavioral Disorders N Breast Problem N Difficulty Swallowing N Anesthesia Complications N Anxiety Disorder N Meniere's disease N Muscle, Joint, or Bone Problems N Vision or Eye Problems N Arthritis N Polyps N Infertility N Cancer N Varicosities N Stroke N Endometriosis N Bladder or Kidney Problems N High Cholesterol Y Liver Disease N Headaches N Fibromyalgia N Kidney Disease N Allergies/Hayfever N Heart Problems N Ear or Hearing Problems N Hospitalizations N Thyroid Problems N GI Problems N ADD/ADHD N Skin Problems N Eating Disorder N Anemia N Constipation N Mental Illness N Ovarian Cancer N Diabetes N Bedwetting N Seizures/Epilepsy N Tuberculosis N Eczema N Diverticulitis N Abuse/Domestic Violence N Asthma N Reflux/GERD N Hepatitis N Heart Disease N Pulmonary Embolism N Chronic Ear Infections N Pre-Eclampsia N Hypertension Y Chicken Pox N Autism Spectrum Disorder (ASD) N Osteoporosis N Thrombophilias N Gynecological HistoryNo gynecological history recorded. Obstetrics History GPAL:G 0 P 0 0 0 0 Past Encounters Encounter ID Performer Location Encounter Start Date Encounter Closed Date Diagnosis/Indication Diagnosis SNOMED-CT Code Diagnosis ICD10 Code Diagnosis Note [id number] DOM KANG [facility] ([facility]) [address] [place] [address] 05/22/2024 11:10:49 05/26/2024 20:24:45 Contusion of back 42808143 T14.8XXA Discussed use of heating pad to the area for 10 minutes every 2 hours while awake.Use the medication as prescribed .Discussed deep breathing exercises. Return if you develop fever, increased pain or symptoms worsen. [id number] DOM VILLAREAL [facility] ([facility]) [address] [place] [address] 10/09/2024 11:49:19 10/09/2024 23:31:02 Acute maxillary sinusitis 99482647 J01.00 Increase po fluids. May use otc meds as needed for any pain or fever. Return to clinic with any new or worsening symptoms. [id number] Inés Stewart MD [facility] ([facility]) [address] [place] [address] 10/15/2024 12:20:17 10/17/2024 16:03:58 Acute sinusitis 33678234 J01.90 Acute bronchitis 4025060 2 J20.9 Health Concerns Section Related Observation LastModified by Organization Detai ls LastModified Time None Recorded Concern Status LastModified by Organization Details LastModified Time None Recorded Advance Directives Directive None Recorded Payers Insurance Date Sequence Insurance Name Policy Number Policy Eng Covered Member ID Eng Member ID Guarantor Name 10/15/2024 1 [place]ANT[place] - PPO) [id number] aMrina Barry [id number] Marina Barry 05/27/2024 2 [place] Marina Barry [id number] Marina Barry 10/09/2024 [place] - [facility] (MEDICARE) Marina Barry [id number] Marina Barry 05/27/2024 1 [place] - BLUE PREFERRED PRIMARY (HMO) [id number] Marina Barry [id number] Marina Barry Notes Date Note Type Note Provider Name and Address Organization Details Recorded Time 05/22/2024 text/html walk in ptPt fel l this morning and hurt right side of back. Thinks there was something wet on the floor that caused the fall. She fell to the right side and hit her mid back on the table. Increased pain with movement. DOM KANG [address] [place] [address], [phone], [facility] [place]. 05/24/2024 08:24:24 10/09/2024 text/html Upper Respirator y SymptomsReported bypatient.Location:[facility] Quality:productive cough;congested;nasal discharge Severity:moderate Context:no sick contacts Associated Symptoms:wheezing;head ache Patient c/o upper respiratory symptoms. She states she's been sick for about two weeks but thought it would get better. Cough has settled in her chest and is now productive. Sputum is thick and yellow-sputum. DOM VILLAREAL [address] [place], [address], [facility] [place] 10/09/2024 17:01:39 10/15/2024 text/html Sinusitis/Allerg yRepor mariajose bypatient.Location[facility] Quality:hoarseness Associated Symptoms:no fever;nasal discharge from nostrils;headache cheek;facial pain bilaterally;sinus pain cheek Still just not getting any better Inés Stewart MD [address] [place], [address], [facility] [place] 10/17/2024 15:15:13 OBGyn Episode No OBEpisode recorded.
--- OUTSIDE RECORDS SUMMARY | 2025-01-22 15:46 | XMS_ITS | Encounter Summary ---
Author Organization [employer] Address [address] [place] [address] Care Team Providers Care Cane Burner Name Role Phone Bernice Platt MD Primary Care Provider [phone] Encounter Details Date Type Department Care Team (Late st Contact Info) Description 01/14/2025 External Device Data [facility] Provider, Abstract NO ADDRESS ON FILE Social History Tobacco Use Types Packs/Day Years Used Date Smoking Tobacco: Never Comments Unknown Sex and Gender Information Value Date Recorded Sex Assigned at Not on file Legal Sex Female 12:45 AM WOOL BROKER Gender Identity Not on file Sexual Orientation Not on file documented as of this encounter Plan of Treatment Not on file documented as of this encounter Visit Diagnoses Not on filedocumented in this encounter Care Teams Cane Burner Relationship Specialty Start Date End Date Bernice Platt [place] [place] [address] PCP - General Family Practice 05/27/24 documented as of this encounter
--- OUTSIDE RECORDS SUMMARY | 2025-01-22 15:46 | XMS_ITS | Clinical Summary ---
Author Organization [facility] Address [address] Roman: Epic Prelude ADT [place] [address] Care Team Providers Care Wire Bender Name Role Phone DepBernice weber MD Primary Care Provider [phone] Medications atorvastatin (LIPITOR) 10 mg tablet Take 10 mg by mouth daily at bedtime. Active lisinopriL 5 mg tablet (PRINIVIL) Take 5 mg by mouth daily at bedtime. Active LORazepam (ATIVAN) 1 mg tablet Take 1 mg by mouth nightly as needed for Anxiety or Insomnia. Active PARoxetine HCl (PAXIL) 10 mg tablet Take 10 mg by mouth daily. Active coenzyme Q10 100 mg Capsule Take 100 mg by mouth daily. Active calcium as carbonate (OS-AKIN) 1,250 mg (500 mg elemental) tablet Take 1 Tablet by mouth 2 times daily with meals. Active oxygen home delivery Home Oxygen Concentrator no at 0 L/M Rest, 3 L/M Activity, 3 L/M Sleep, Delivery Device: Nasal Cannula Portability: yes, 0 L/M Rest, 3 L/M Activity, May provide device best for patient needs(E system,home fill, conserving device) Length of Need: 1 month 1 Each 4 Active cyclobenzaprine (FLEXERIL) 10 mg tablet Take 1 Tablet (10 mg) by mouth 3 times daily as needed for Spasm. 30 Tablet 4 Active Active Problems Problem Noted Date Diagnosed Date Hypoxia 05/27/2024 History of tobacco use 05/27/2024 Laboratory test 05/27/2024 Multiple closed fractures of ribs of right side 05/25/2024 Fall at home 05/25/2024 Encounters Date Type Department Care Team Description 01/14/2025 External Device Data [facility]CTION Provider, Abstract 12/25/2024 External Device Data [facility] Provider, Abstract 12/24/2024 External Device Data [facility] Provider, Abstract 11/05/2024 External Device Data [facility] Provider, Abstract 11/05/2024 External Device Data [facility] Provider, Abstract from Last 3 Months Social History Tobacco Use Types Packs/Day Years Used Date Smoking Tobacco: Never Tobacco Cessation:Counseling Given: Not Answered Comments Unknown Sex and Gender Information Value Date Recorded Sex Assigned at Not on file Legal Sex Female 12:45 AM SALES REPRESENTATIVE CONSULTANT Gender Identity Not on file Sexual Orientation Not on file Last Filed Vital Signs Vital Sign Reading Time Taken Comments Blood Pressure 128/68 06/13/2024 1:58 PM SALES REPRESENTATIVE CONSULTANT Pulse 85 06/13/2024 1:58 PM SALES REPRESENTATIVE CONSULTANT Temperature 36.3 C (97.3 F) 05/28/2024 7:25 AM SALES REPRESENTATIVE CONSULTANT Respiratory Rate 17 05/28/2024 7:25 AM SALES REPRESENTATIVE CONSULTANT Oxygen Saturation 97% 06/13/2024 1:58 PM SALES REPRESENTATIVE CONSULTANT Inhaled Oxygen Concentration - - Weight 56.2 kg (124 lb) 06/13/2024 1:58 PM SALES REPRESENTATIVE CONSULTANT Height 154.9 cm (5' 1 ) 06/13/2024 1:58 PM SALES REPRESENTATIVE CONSULTANT Body Mass Index 23.43 06/13/2024 1:58 PM SALES REPRESENTATIVE CONSULTANT Plan of Treatment Health Maintenance Due Date Last Done Comments DTAP/TDAP/TD VACCINES (1 - Tdap) 02/21/1967 PNEUMOCOCCAL VACCINE 50+ YEARS (1 of 1 - PCV) 02/21/19 98 ZOSTER VACCINE (1 of 2) 02/21/1998 OSTEOPOROSIS SCREENING 02/21/2013 RSV VACCINE (60+ or ) (1 - 1-dose 75+ series) 02/21/2023 INFLUENZA VACCINE (#1) 2025 Insurance [facility] MEDICARE HMO Advance Directives For more information, please contact: [phone] * Full Code (Latest Code Status on File) Date Activated Date Inactivated Comments 05/25/2024 5:20 AM 05/28/2024 1:58 PM Care Teams Wire Bender Relationship Specialty Start Date End Date Bernice [place] [place] [address] PCP - General Family Practice 05/27/24
--- OUTSIDE RECORDS SUMMARY | 2025-01-22 15:47 | XMS_ITS | Patient Health Record ---
Author Organization [facility] Address [address] [place] [address] Care Team Providers Care Cardiology Tech Name Role Phone MacarioBernice weber Primary Care Provider Domingo Malikfaustojodi Unavailable [phone] Allergies No Known Allergies Results Component Value Reference Range Flag Notes CBC w\o Diff 35990 Reviewed date:05/02/2024 06:07:40 PM Interpretation:Normal Performing Lab: Notes/Report: Diagnosis Description: Essential (primary) hypertension WBC 10.0 4.5-11.0 X10'3 RBC 4.53 4.00-5.20 X10'6 Hgb 14.3 12.0-16.0 G/DL Hct 43.6 36.0-46.0 % MCV 96.2 80.0-100.0 FL MCH 31.6 27.0-31.0 PG HI MCHC 32.8 31.0-37.0 G/DL Platelet 300 150-400 X10'3 RDW-SD 49.1 35.0-49.0 FL HI RDW-CV 13.7 12.2-15.6 % MPV 10.4 9.2-12.0 FL Thyroid Stimulating Hormone (TSH) 78498 Reviewed date:05/02/2024 06:07:40 PM Interpretation:Normal Performing Lab: Notes/Report: Diagnosis Description: Essential (primary) hypertension Diagnosis Description: Major depressivedisorder, Recurrent episode, Moderate Diagnosis Description: Other specified anxiety disorder TSH .920 .358-3.740 MlU/ML Lipid Panel Reflex DLDL 8006 1, 10088 Reviewed date:05/03/2024 03:52:46 PM Interpretation: Performing Lab: Notes/Report: Trig 100 NA Classification Guidelines:Triglycerides Adults: >20yrs Desirable <150 Borderline High 150-199 High 200-499 Very high >=500 Children: Male 0-4 yr 22-99 5-9 yr 30-101 10-14 yr 32-125 15-19 yr 37-148 Children: Female 0-4 yr 34-112 5-9 yr 32-105 10-14 yr 37-131 15-19 yr 39-132 Chol 230 <=200 MG/DL HI HDL 91 39-96 MG/DL Reference Ranges:HDL Male: 5-9y 38-75 10-14y 37-74 15-19y 30-63 >=20y 40-59 Female: 5-9y 36-73 10-14y 37-70 15-19y 35-74 >=20y 40-59 CH/HDL 2.5 0.0-4.9 RATIO LDL 119 0-130 MG/DL LDL result is inaccurate , if Trig is >400 mg/dl. See DLDL result. Comprehensive Metabolic Pane l ([facility]) [address] Reviewed date:05/03/2024 03:52:46 PM Interpretation: Performing Lab: Notes/Report: Diagnosis Description: Essential (primary) hypertension Glucose Serum 85 71-110 MG/DL Testing p erformed at [facility], [address] [place] [address] Dr. Trever Leslie, [place] [address]. CLIA ID#: [id number] BUN 11 7-21 MG/DL Creat .71 .51-1.17 MG/DL U-dzwyro-v-benzoquinone imine (NAPQI) is a metabolite of acetaminophen, NAPQI concentrations of apparoximately 10 mg/L correlation to toxic levels of acetaminophen demonstrates a greater than or equil to 10% change in results. NAPQI concentrations greater than this may lead to falsely depressed results for patient samples. Use of this assay is not recommended for patients undergoing treatment with phenindione, due to the potential for falsely depressed results. GFR 87.5 NA Calculation pe rformed from GFR calculator provided by the [employer]. Glomerular Filtration rate(GRF) is the best overall index of kidney function. Normal GFR varies according to age,sex, body size, and declines with age. The [employer] recommends using the CKD-EPI Creatinine Equation(2020) to estimate GFR. BUN/Creat Ratio 15.5 12.0-20.0 % Total Protein 6.6 5.8-8.0 G/DL Albumin 4.4 3.2-4.8 G/DL Globulin 2.2 2.3-3.5 G/DL LOW Alb/Glob 2.0 0.8-2.2 Calcium 9.6 8.7-10.4 MG/DL Sodium 141 136-145 MMOL/L Potassium 4.3 3.5-5.1 MMOL/L Chloride 103 98-107 MMOL/L CO2 30.0 20.0-31.0 MMOL/L Anion Gap 12 5-15 Alk Phos 83 46-116 Bili Total .6 .3-1.2 MG/DL Use of this assay is not recommended for patients undergoing treatment with eltrombopag due to the potential for falsely elevated results. AST/SGOT 22 15-37 UNIT/L ALT/SGPT 21 12-78 UNIT/L Osmo Serum,Calculated 291 280-300 MOSM/KG Reason For Referral No Information Medications Medication SIG (Take, Route, Frequency, Duration) Notes Start Date End Date Status Celecoxib 200 MG Capsule 1 capsule with food Orally Once a day; Duration: 14 days Active PARoxetine HCl 10 MG Tablet 1 tablet in the morning Oral Once a day; Duration: 90 days Active oxyCODONE HCl 5 MG Tablet 1 tablet as ne eded Orally every 6 hrs Not-Taking Lisinopril 5 MG Tablet 1 tablet Oral Onc e a day; Duration: 90 days Active LORazepam 1 MG Tablet 1 tablet at bedtime as needed Oral Once a day; Duration: 30 days As needed 05/01/2024 Not-Taking traZODone HCl 50 MG Tablet 1 tablet at b edtime as needed Orally Once a day; Duration: 30 days 08/01/2024 Active Aspirin 81 81 MG Tablet Delayed Release 1 tablet Orally Once a day Active Calcium + D 500-1000-40 MG-UNT-MCG Tablet Chewable 1 tablet Orally daily Active CoQ-10 100 MG Capsule 1 capsule Orally daily Active Atorvastatin Calcium 10 MG Tablet 1 tablet Oral Once a day; Duration: 90 days Active Methocarbamol 500 MG Tablet 1.5 tablets Orally every 4 hrs; Duration: 7 days Not-Taking Immunizations Vaccine Route Administration Date Status Comme nts Flucelvax Trivalent, Syringe 0.5 mL, PF IM Intramuscular 05/01/2024 Administered [id number] Prevnar 20 IM Intramuscular 06/04/2024 Administered [facility] 00 Social History Tobacco Use: Social History Observation Description Date Details (start date - stop date) Former Smoker NA - NA Social History Depression Screening Social Info Question Answer Notes depression screening findings Findings Negative (0 -4) PHQ-9 Little interest or p sara in doing things Not at all Feeling down, depressed, or hopeless Not at all Trouble falling or staying asleep, or sleeping t oo much Not at all Feeling tired or having little energy More than half the days Poor appetite or overeating More than half the d ays Feeling bad about yourself, or that you are a failure, or have let yourself or your family down Not at all Trouble concentrating on thi ngs, such as reading the newspaper or watching television Not at all Moving or speaking so slowly that other people could have noticed. Or the opposite ? being so fidgety or restless that you have been moving around a lot more than usual Not at all Thoughts that you would be b jennifer off , or of hurting yourself in some way Not at all Total Score 4 Interpretation Minimal Depression Drugs/Alcohol: Social Info Question Answer Notes Drugs Have you used drugs other than those for medical reasons in the past 12 months? No Caffeine Intake: more than 4 cups per day Drug/Alcohol: Social Info Question Answer Notes AUDIT-C (Standard) Did you have a drink containing alcohol in the past year? Yes How often did you have six or more drinks on one occasion in the past year? Never (0 point) How many drinks did you have on a typical day when you were drinking in the past year? 1 or 2 drinks (0 point) How often did you have a drink containing alcohol in the past year? 2 to 4 times a month (2 points) Points 2 Interpretation Negative Tobacco Use: Social Info Question Answer Notes Tobacco Control (Standard) Tobacco use: Former smoker Screening Not Performed: Do you smoke? No Tobacco use other than smoking: Are you an other tobac co user? No Additional Details Category Social Info Options Details Drugs/Alcohol: Do you smoke marijuana? De nies Do you drink alcohol? Yes Problems Problem Type SNOMED Code ICD Code Onset Dates Problem Status W/U Status Risk Notes Problem Mixed hyperlipidemia (494741422) Mixed hyperlipidemia (E78.2) Active confirmed Problem Generalized osteoarthritis (741721442) Generalized osteoarthritis (M15.9) Active confirmed Problem Anxiety (48044635) Situational anxiety (F41.8) Active confirmed Problem Chronic insomnia (472719474) Chronic insomnia (F51.04) Active confirmed Problem Moderate recurrent major depression (39646336) Moderate recurrent major depression (F33.1) Active confirmed Problem Primary hypertension (80014141) Primary hypertension (I10) Active confirmed Problem Dermatitis (238847145) Mild eczema (L30.9) Active confirmed Vital Signs Heart Rate 79 /min 08/01/2024 Respiratory Rate 18 /min 08/01/2024 Height-cm 153.67 cm 08/01/2024 Oximetry 99 % 08/01/2024 Blood pressure diastolic 74 mm Hg 08/01/2024 Weight-kg 57.6 kg 08/01/2024 Height 60.5 in 08/01/2024 Blood pressure systolic 118 mm Hg 08/01/2024 Weight 126.98 lbs 08/01/2024 BMI 24.39 kg/m2 08/01/2024 Encounters Encounter Location Date Provider Diagnosis [address] [place] [address] 05/01/2024 Bernice Platt Primary hypertension I10 ; Mixed hyperlipidemia E78.2 ; Moderate recurrent major depression F33.1 ; Situational anxiety F41.8 ; Mild eczema L30.9 ; Vitamin D deficiency E55.9 ; Vitamin B12 deficiency E53.8 ; Encounter for immunization Z23 ; Osteopenia of multiple sites M85.89 ; Generalized osteoarthritis M15.9 and Status post right hip replacement Z96.641 [address] [place] [address] 06/04/2024 Ciera Malik Encounter for suppor t and coordination of transition of care Z76.89 ; Primary hypertension I10 ; Status post fall Z91.81 ; Closed fracture of multiple ribs of right side with routine healing, subsequent encounter S22.41XD ; Closed fracture of first lumbar vertebra with routine healing, unspecified fracture morphology, subsequent encounter S32.019D and Encounter for immunization Z23 [address] [place] [address] 06/18/2024 Bernice Platt Need for home health care Z74.2 [facility] [address] [place] [address] 06/21/2024 Bernice Resnick [facility] Need for home health care Z74.2 [facility] [address] [place] [address] [facility] M15.9 ; Chronic insomnia F51.04 ; Primary hypertension I10 ; Mixed hyperlipidemia E78.2 and Pruritic dermatitis L30.8 [facility] [address] [place] [address] 05/06/2024 [facility] Mixed hyperlipidemia E78.2 [address] [place] [address] 05/27/[address] [facility] [address] [address] 05/31/[address] [facility] [address] [place] [address] 06/03/[address] [facility] [address] [place] [address] 06/10/2024 [facility] Ass[facility] Encounter Date Diagnosis (ICD Code) Assessment Notes Treatment Notes Treatment Clinical Notes Section Notes 05/01/2024 Mixed hyperlipidemia (ICD-10 - E78.2) Chronic. stable. continue current medication regimen. labs pending. continue to monitor 05/01/2024 Primary hypertension (ICD-10 - I10) Chronic. controlled. continue current medication regimen. labs pending. continue to monitor 05/06/2024 Mixed hyperlipidemia (ICD-10 - E78.2) 06/04/2024 Encounter for support and coordination of transition of care (ICD-10 - Z76.89) [facility]. 06/04/2024 Primary hypertension (ICD-10 - I10) chronic. stable. monitor at home. continue lisinopril 06/18/2024 Need for home health care (ICD-10 - Z74.2) 06/21/2024 Need for home health care (ICD-10 - Z74.2) 08/01/2024 Generalized osteoarthritis (ICD-10 - M15.9) Chronic. Stable. Use tylenol as needed. may use celebrex sparingly. Continue to monitor. 08/01/2024 Chronic insomnia (ICD-10 - F51.04) chronic. start trazodone. stop ativan. continue to monitor. 08/01/2024 Primary hypertension (ICD-10 - I10) Chronic. Controlled. Continue medication. Continue to monitor. 06/04/2024 Status post fall (ICD-10 - Z91.81) new onset. use walker for support. continue with PT at home. 05/01/2024 Moderate recurrent major depression (ICD-10 - F33.1) Chronic. stable. continue current medication regimen. continue to monitor 05/01/2024 Situational anxiety (ICD-10 - F41.8) Chronic. stable. continue current medication regimen. continue to monitor 06/04/2024 Closed fracture of multiple ribs of right side with routine healing, subsequent encounter (ICD-10 - S22.41XD) new onset. continue pain meds. follow up with trauma surgeon next week 08/01/2024 Mixed hyperlipidemia (ICD-10 - E78.2) Chronic. Stable. Continue medication. Continue to monitor. 08/01/2024 Pruritic dermatitis (ICD-10 - L30.8) acute. start topical treatment, if no improvement in 7-10 days alert clinic. 06/04/2024 Closed fracture of first lumbar vertebra with routine healing, unspecified fracture morphology, subsequent encounter (ICD-10 - S32.019D) new onset. continue pain meds. follow up with trauma surgeon next week 05/01/2024 Mild eczema (ICD-10 - L30.9) chronic. stable - not flared at this time. continue topical cortisone prn. continue to monitor. 06/04/2024 Encounter for immunization (ICD-10 - Z23) 05/01/2024 Vitamin D deficiency (ICD-10 - E55.9) 05/01/2024 Vitamin B12 deficiency (ICD-10 - E53.8) 05/01/2024 Encounter for immunization (ICD-10 - Z23) Give Flu vaccine as directed per provider. Instructed patient that soreness, redness and swelling where the shot is given, fever, muscle aches, and headache can happen after influenza vaccination. An allergic reaction could occur after the vaccinated person leaves the clinic. If you see signs of a severe allergic reaction (hives, swelling of the face and throat, difficulty breathing, a fast heartbeat, dizziness, or weakness), call 9-1-1 and get to the nearest hospital. 05/01/2024 Osteopenia of multiple sites (ICD-10 - M85.89) chronic. stable. request most recent BMD results from [place], [place]. Continue vitD and calc supplementation daily. continue to monitor. 05/01/2024 Generalized osteoarthritis (ICD-10 - M15.9) chronic. stable. continue tylenol prn pain flares. continue to follow with Dr. Xiong (ortho) prn. continue to monitor. 05/01/2024 Status post right hip replacement (ICD-10 - Z96.641) chronic. unchanged. 05/01/2024 Other All patient's questions are encouraged and addressed to their apparent satisfaction. Unless otherwise noted above, they are agreeable with the proposed plan of care and deny further needs or concerns at this time. I am happy to see patient prior to next office visit as needed for acute concerns. 06/04/2024 Other All patient's questions are encouraged and addressed to their apparent satisfaction. Unless otherwise noted above, they are agreeable with the proposed plan of care and deny further needs or concerns at this time. I am happy to see patient prior to next office visit as needed for acute concerns. IElizabeth, am serving as a scribe to document services personally performed by Ciera Malik APRN, based on my observation and the provider's statement to me. I, Ciera Malik APRN, attest that Elizabeth, is acting in a scribe capacity, has observed my performance of the services, and has documented them in accordance with my direction. The information recorded by the scribe is complete and accurate. 08/01/2024 Other All patient's questions are encouraged and addressed to their apparent satisfaction. Unless otherwise noted above, they are agreeable with the proposed plan of care and deny further needs or concerns at this time. I am happy to see patient prior to next office visit as needed for acute concerns. Elizabeth Rivero, am serving as a scribe to document services personally performed by Bernice Platt MD based on my observation and the provider's statement to me. I, Bernice Platt MD, attest that Elizabeth, is acting in a scribe capacity, has observed my performance of the services, and has documented them in accordance with my direction. The information recorded by the scribe is complete and accurate. Plan Of Treatment Pending Test Test Name Order Date Lipid Panel Reflex DLDL 54532, 64575 Insurance Providers Payer Name Payer Address Payer Phone Subscriber Number Group Number Insured Name Patient Relationship to Insured Coverage Start Date Coverage End Date [employer] [place] [employer] Re[employer] [address] [place] [address] [id number] MITESH BARRY Self - patient is the insured 4 [place] [address] [place] [phone] [id number] MITESH BARRY Self - patient is the insured Medical (General) History Medical History History ICD Code measles Chicken Pox Pneumonia bladder infections High Blood Pressure bronchitis Status post right hip replacement Z96.64 1 Surgical History Surgery Date(Month/Year) tonsillectomy and adenoidectomy appendectomy partial hysterectomy right hip 2021 Hospitalization History Reason Date(Month/Year) see surgery
[2025-01-22] MEDS: HYDROmorphone 0.5 MG/0.5 ML INJ 1 MG IVP (16:18)
[2025-01-22] MEDS: ondansetron 2 mg/ML SDV 2 mL 4 MG IVP (16:35)
[2025-01-22] MEDS: propofol 10 mg/mL SDV 20 mL 100 MG IVP (16:54)
--- NOTE | 2025-01-22 16:57 | XRR_ITS ---
PROCEDURE INFORMATION: Exam: XR Left Wrist Exam date and time: 01/22/2025 4:56 PM Age: 74 years old Clinical indication: Pain; Wrist; Left; Additional info: Post reduction TECHNIQUE: Imaging protocol: Radiologic exam of the left wrist. Views: 1 or 2 views. COMPARISON: CR XR wrist LT min 3V* [id number] 01/22/2025 3:50 PM FINDINGS: Bones/joints: Plaster slightly reduces osseous detail. Persistent mildly comminuted fracture of the distal left radial metaphysis. Impaction and dorsal displacement is unchanged. There has been some improvement in fracture angulation since the pre casting images. Soft tissues: Diffuse soft tissue swelling surrounds the wrist and distal forearm. XR/XR wrist LT 2V [id number] IMPRESSION: Persistent impaction and dorsal displacement involving the comminuted distal left radius fracture.
[2025-01-22] MEDS: tetanus-dipt-pertussis 0.5 mL SDV IM (17:14)
== END 2025-01-22 18:22 | disposition home or self-care (01) ==
PROVIDERS: Emergency Provider Emergency Medicine; PCP Family Medicine
DX: S52.502A Unspecified fracture of the lower end of left radius, initial encounter for closed fracture (principal); S09.90XA Unspecified injury of head, initial encounter; W19.XXXA Unspecified fall, initial encounter
CPT/HCPCS: 25605; 70450; 72125; 73100; 73110; 90471; 90715; 94799; 96374; 96375; 99152; 99285; A4565; J1171; J2405; J2704

== ENCOUNTER 2025-03-19 09:52 | Outpatient (RCR) | payer MEDICARE, SELFPAY | END 2025-04-08 23:59 | disposition home or self-care (01) | LOC: SOT 09:52 | PROVIDERS: Visit Provider Physician Assistant | DX: S52.552D Other extraarticular fracture of lower end of left radius, subsequent encounter for closed fracture with routine healing (principal); X58.XXXD Exposure to other specified factors, subsequent encounter | CPT/HCPCS: 97022; 97110; 97167 ==

== ENCOUNTER → 2025-05-02 09:31 | Outpatient (BNVA) | payer MEDICARE, SELFPAY | PROVIDERS: PCP Family Medicine; Visit Provider Family Medicine | DX: Z13.6 Encounter for screening for cardiovascular disorders (principal) | CPT/HCPCS: 80053; 80061; 84439; 84443; 85025 ==